=== PATIENT | male | born 1955 | race Caucasian/White ===

== ENCOUNTER 2016-11-16 16:25 | Emergency (ER) | payer SELFPAY ==
--- NOTE | 2016-11-16 17:11 | UC ---
Truncal Trauma HPI - HPI Summary HPI Summary: 60 year old male presents here with multiple complaints. Right arm pain, posterior left lower leg bruising, left back pain below scapula onset today s/p fall off ladder from height of 8 feet about 1545. Pt hit wooden palate. Pt was unable to walk, had slurred speech after dangling from ladder. Pt had urinary incontinence. [ End ] - History Of Current Complaint Chief Complaint: UCUpperExtremity Stated Complaint: LEFT LEG/BACK/ARM PAIN FALL W/C Time Seen by Provider: 11/16/16 17:04 Hx Obtained From: Patient, Family/Soda Worker Onset/Duration: Sudden Onset Onset Of Pain: Immediate Mechanism Of Injury: Blunt Trauma, Direct Blow, Fall From Height Of: - 8 feet Aggravating Factor(s): Nothing Alleviating factor(s): Nothing - Allergies/Home Medications Allergies/Adverse Reactions: Allergies Allergy/AdvReac Type Severity Reaction Status Date / Time No Known Allergies Allergy Verified 11/16/16 16:59 PMH/Surg Hx/FS Hx/Imm Hx Previously Healthy: Yes Endocrine History: Dyslipidemia - Surgical History Surgical History: None - Family History Known Family History: Positive: None - Social History Occupation: Employed Full-time Alcohol Use: None Substance Use Type: None Smoking Status (MU): Heavy Every Day Tobacco Smoker Type: Cigarettes Amount Used/How Often: 1.5 PPD Length of Time of Smoking/Using Tobacco: 41 YRS Cessation Counseling: Patient Advised to Stop - Immunization History Most Recent Tetanus Shot: greater than 5 years ago Review of Systems Eyes: Blurred Vision Genitourinary: Other - urinary incontinence Musculoskeletal: Arthralgia, Myalgia Neurological: Headache Is Patient Immunocompromised?: No All Other Systems Reviewed And Are Negative: Yes Physical Exam Triage Information Reviewed: Yes Appearance: Well-Appearing, No Pain Distress, Well-Nourished Vital Signs: Initial Vital Signs Temp 97.9 F 11/16/16 16:48 Pulse 55 11/16/16 16:48 Resp 18 11/16/16 16:48 BP 133/81 11/16/16 16:48 Vital Signs Reviewed: Yes Eye Exam: Normal ENT Exam: Normal Dental Exam: Normal Neck exam: Normal Neck: Positive: 1 Respiratory Exam: Normal Cardiovascular Exam: Normal Abdominal Exam: Normal Musculoskeletal Exam: Normal Musculoskeletal: Positive: Strength Intact, Other: - tenderness to palpation of the right upper arm near insertion of the triceps, left lower leg, left lower back diffusely as well and superficial abrasions on the back and the left lower leg. Neurological Exam: Normal Psychological Exam: Normal Skin Exam: Normal Truncal Trauma Course/Dx - Course Course Of Treatment: Concern with LOC and urinary incontinence of red flags and trauma. Needs stat labs and imaging and we can not perform that at this time in [facility] facility. Advised to go to [facility] for trauma work up but he declined and wanted to go home and I told him he could bleeding internally and that could cause his . He reluctantly will allow his daughter to drive him to the ED in [place] as they declined both [facility] and [place]. Declined ambulance as well and will drive directly there. Spoke with Dr Linares who will work up patient but informed me if any concerns for advanced trauma then he will be transferred to [facility]. - Differential Dx/Diagnosis Differential Diagnosis/HQI/PQRI: Chest Wall Contusion, Pneumothorax, Rib Fracture Provider Diagnoses: Fall with possible LOC and multiple injuries Discharge - Discharge Plan Condition: Guarded Disposition: OTHER Discharge Disposition Comment: fair to go to [place] / [facility] ED Patient Education Materials: Syncope (ED) Referrals: Charbel Pérez MD [Medical Doctor] - Additional Instructions: PLEASE GO DIRECTLY TO THE EMERGENCY ROOM IN [place] AND DO NOT STOP AT HOME. YOU NEED A THOROUGH WORK UP AT THIS TIME
[2016-11-16 17:49] VITALS: BP 114/63
== END 2016-11-16 17:50 ==
LOC: UCCORT 16:25
DX: S49.91XA Unspecified injury of right shoulder and upper arm, initial encounter (principal); S39.92XA Unspecified injury of lower back, initial encounter; S89.92XA Unspecified injury of left lower leg, initial encounter; E78.5 Hyperlipidemia, unspecified; F17.210 Nicotine dependence, cigarettes, uncomplicated; W11.XXXA Fall on and from ladder, initial encounter; Y92.9 Unspecified place or not applicable
CPT/HCPCS: 99212; G0463

== ENCOUNTER 2016-11-16 18:32 | Emergency (ER) | payer SELFPAY ==
[2016-11-16 20:28] LABS: Urine Bilirubin Negative (Negative); Urine Glucose Negative (Negative); Urine Nitrite Negative (Negative)
[2016-11-16 21:17] LABS: Hematocrit 44 % (42-52); Hemoglobin 15.1 g/dl (14.0-18.0); Mean Corpuscular HGB Conc 34 g/dl (31-36); Mean Corpuscular Hemoglobin 30 pg (27-31); Mean Corpuscular Volume 86 fL (80-94); Mean Platelet Volume 8 um3 (7.4-10.4); Red Blood Count 5.09 10^6/ul (4.0-5.4); Red Cell Distribution Width 14 % (10.5-15)
[2016-11-16 21:30] LABS: Albumin 4.1 g/dL (3.2-5.2); BUN/Creatinine Ratio 11.3 (8-20); Calcium 9.1 mg/dL (8.6-10.3); EGFR African American 127.2 (>60); EGFR Non-African American 98.9 (>60); Globulin 2.7 g/dL (2-4); Potassium 3.9 mmol/L (3.5-5.0); Total Bilirubin 0.4 mg/dL (0.2-1.0); Total Protein 6.8 g/dL (6.4-8.9)
[2016-11-16] MEDS ORDERED: Iohexol 300* (CONTRAST) 10 ML SDV IV ONE (21:50)
--- NOTE | 2016-11-16 22:04 | RAD ---
INDICATION: Head injury, fell off ladder. COMPARISON: There are no prior studies available for comparison. TECHNIQUE: Contiguous axial sections of the brain were obtained from the skull base to the vertex without contrast. FINDINGS: The ventricles, cisterns and sulci are within normal limits. No significant focal abnormality or mass effect is seen. There is no evidence for hemorrhage. No significant focal osseous abnormality is seen. The visualized portion of the paranasal sinuses and mastoid air cells appear clear. IMPRESSION: NO EVIDENCE FOR ACUTE INTRACRANIAL ABNORMALITY.
--- NOTE | 2016-11-16 22:15 | RAD ---
INDICATION: Trauma. COMPARISON: There are no prior studies available for comparison. TECHNIQUE: Contiguous axial sections were obtained from the skull base through the T1 vertebra. Images were reconstructed in the sagittal and coronal planes. FINDINGS: The vertebra are in normal alignment. No prevertebral soft tissue swelling or fracture is seen. There are several small lucent lesions present within the vertebra. These involve the articular process of the C2 vertebra on the right side, the C3 vertebral body and the transverse process of the C6 transverse process on the right side. These measure up to 0.8 cm in size. At the C4-C5 level there is mild posterior uncinate process spurring. There is mild spinal canal narrowing and moderate neural foraminal narrowing on the left side. At the C5-C6 level there is mild posterior uncinate process spurring. There is mild spinal canal narrowing and mild bilateral neural foraminal narrowing. At the C6-C7 level there is mild posterior uncinate process spurring. No spinal canal narrowing is present. There is mild neural foraminal narrowing on the left side. IMPRESSION: 1. NO EVIDENCE FOR FRACTURE OR SUBLUXATION. 2. MULTIPLE SMALL LUCENT LESIONS WITHIN SEVERAL VERTEBRA, POSSIBLY INCIDENTAL ALTHOUGH THE POSSIBILITY OF A NEOPLASTIC PROCESS SUCH METASTATIC DISEASE OR MULTIPLE MYELOMA CANNOT BE EXCLUDED. RECOMMEND AN OUTPATIENT MRI OF THE CERVICAL SPINE FOR FURTHER EVALUATION. 3. [id number] CERVICAL SPONDYLOSIS.
[2016-11-16 23:34] VITALS: BP 133/69
--- NOTE | 2016-11-17 07:40 | RAD ---
INDICATION: Pain at the left leg back and head after a fall from an 8 foot ladder. COMPARISON: CT urogram dated December 22, 2014. TECHNIQUE: Multidetector CT images of the chest, abdomen and pelvis were obtained from the lung apices to the ischial tuberosities following the injection of 85 mL Omnipaque 300. The patient received oral contrast as well.. CHEST: Lungs exhibit diffuse mild centrilobular emphysematous changes. Otherwise the lungs are clear. There are no large pleural effusions. There is no mediastinal or hilar lymphadenopathy. The heart and major vascular structures are grossly normal in appearance. ABDOMEN \T\ PELVIS: Fluid density cyst in the left lobe of the liver are unchanged from the prior CT examination. The liver is otherwise homogenous in attenuation. The spleen, pancreas and adrenal glands are grossly normal in appearance. The gallbladder is normal. The kidneys are normal in appearance without focal mass, calcification or signs of hydronephrosis. On the delayed phase images contrast is symmetrically and promptly excreted. . The small and large bowel are not distended. The appendix . There is no gross retroperitoneal or mesenteric lymphadenopathy. The prostate is slightly enlarged measuring 4.3 x 5.9 cm in the axial plane. The mildly calcified abdominal aorta and iliac arteries are normal in course and diameter. Coarse calcification extends into the bilateral common iliac arteries. Degenerative changes of the thoracic and lumbar spine includes loss of intervertebral disc height at multiple levels. There is no displaced fracture involving the axial skeleton. IMPRESSION: 1. No displaced fracture or other traumatic injury involving the chest abdomen and pelvis. 2. Coarse calcification in the lower abdominal aorta extends into the iliac arteries. Please correlate to signs and symptoms of arterial insufficiency. 3. Additional chronic and degenerative changes described in the body the report unrelated to the patient's acute traumatic presentation.
--- NOTE | 2016-11-26 14:46 | ED ---
Natalie Hernandez Rebecca, scribed for Eneida Brand MD on 11/16/16 at 2049 . Adult Trauma - HPI Summary HPI Summary: Pt is a 60 y/o M referred from [facility] who presents to ED c/o back pain s/p fall. At approximately 1530 today the pt was on an 8 foot ladder when he stepped backwards, causing him to fall. Pt is unsure of any head trauma and the fall was unwitnessed. Pain is currently mild, ranked 3/10. Sx aggravated and alleviated by nothing. Additionally notes mild LLE pain characterized as sore, dizziness, slurred speech and diaphoresis after the fall. Denies abdominal, chest, hip, shoulder and neck pain as well as SOB. NKDA. - History of Current Complaint Chief Complaint: EDGeneral Stated Complaint: FALL/SENT BY [facility] Time Seen by Provider: 11/16/16 20:32 Hx Obtained From: Patient Mechanism of Injury: Fall Onset/Duration: Started Hours Ago, Still Present Onset of Pain: Prior to Arrival Current Severity: Mild Pain Intensity: 3 Pain Scale Used: 0-10 Numeric Location: Back, Extremities - LLE - soreness Aggravating Factor(s): Nothing Alleviating Factor(s): Nothing Associated Signs & Symptoms: Negative: SOB, Chest Pain, Abdominal Pain - Allergy/Home Medications Allergies/Adverse Reactions: Allergies Allergy/AdvReac Type Severity Reaction Status Date / Time No Known Allergies Allergy Verified 11/16/16 16:59 PMH/Surg Hx/FS Hx/Imm Hx Endocrine/Hematology History: Denies: Hx Diabetes Cardiovascular History: Reports: Hx Hypercholesterolemia, Hx Hypertension Infectious Disease History: Yes Infectious Disease History: Denies: Traveled Outside the [place] in Last 30 Days - Family History Known Family History: Negative: Hypertension - Social History Alcohol Use: None Substance Use Type: Reports: None Smoking Status (MU): Heavy Every Day Tobacco Smoker Type: Cigarettes Amount Used/How Often: 1.5 PPD Length of Time of Smoking/Using Tobacco: 41 YRS Review of Systems Positive: Skin Diaphoresis - s/p fall Negative: Chest Pain Negative: Shortness Of Breath Negative: Abdominal Pain Positive: Arthralgia - Back pain, mild LLE pain; NEGATIVE: hip, shoulder nad neck pain Neurological: Other - Dizziness - s/p fall Positive: Slurred Speech - s/p fall All Other Systems Reviewed And Are Negative: Yes Physical Exam - Summary Physical Exam Summary: General: Well appearing, no pain distress Skin: Warm, Skin Color Reflects Adequate Perfusion, Dry, Abrasions to the posterior surface of the LLE with a contusion. He has one abrasion that is 4 cm long over the anterior surface of the LLE. He has a contusion with an abrasion over the periscapular on the left side. He has multiple small contusions over his thorax on the L side and another contusion/abrasion periscapular on the R. Eyes: EOMI, GOPAL ENT: Pharynx normal, TMs normal Neck: Supple, nontender Respiratory: CTA, breath sounds present, no rhonchi, no wheezes, no rales Cardiovascular: RRR, no murmur, no rub, no gallop Abdomen: Soft, nontender, Non-distended, no guarding, no rebound Bowel: Present Musculoskeletal: ATIF, No edema Neuro: Sensory/motor intact, A&Ox3, CN intact 2-12 Psych: Affect/mood appropriate Triage Information Reviewed: Yes Vital Signs On Initial Exam: Initial Vitals Temp Pulse Resp BP Pulse Ox 98.5 F 60 20 122/68 100 11/16/16 18:46 11/16/16 18:46 11/16/16 18:46 11/16/16 18:46 11/16/16 18:46 Vital Signs Reviewed: Yes Diagnostics - Vital Signs Vital Signs Temp Pulse Resp BP Pulse Ox 11/16/16 19:47 97.9 F 60 14 138/61 99 11/16/16 18:46 98.5 F 60 20 122/68 100 - Laboratory Lab Results: Lab Results 11/16/16 Range/Units 19:53 Urine Color Yellow Urine Appearance Clear Urine pH 7.0 (5-9) Ur Specific [place] 1.010 (1.010-1.030) Urine Protein Negative (Negative) Urine Ketones Negative (Negative) Urine Blood Negative (Negative) Urine Nitrate Negative (Negative) Urine Bilirubin Negative (Negative) Urine Urobilinogen Negative (Negative) Ur Leukocyte Esterase Negative (Negative) Urine Glucose Negative (Negative) Result Diagrams: 11/16/16 21:00 11/16/16 21:00 Lab Statement: Any lab studies that have been ordered have been reviewed, and results considered in the medical decision making process. - CT C-Spine CT CT Interpretation: Positive (See Comments) - 1. NO EVIDENCE FOR FRACTURE OR SUBLUXATION. 2. MULTIPLE SMALL LUCENT LESIONS WITHIN SEVERAL VERTEBRA, POSSIBLY INCIDENTAL ALTHOUGH THE POSSIBILITY OF A NEOPLASTIC PROCESS SUCH METASTATIC DISEASE OR MULTIPLE MYELOMA CANNOT BE EXCLUDED. RECOMMEND AN OUTPATIENT MRI OF THE CERVICAL SPINE FOR FURTHER EVALUATION. 3. [id number] CERVICAL SPONDYLOSIS. ED physician reviewed radiology report and agrees. CT Interpretation Completed By: Radiologist Brain CT CT Interpretation: No Acute Changes - NO EVIDENCE FOR ACUTE INTRACRANIAL ABNORMALITY. ED physician reviewed radiology report and agrees. CT Interpretation Completed By: Radiologist Chest/Abd/Pel CT CT Interpretation: No Acute Changes - Chest - No pneumothorax, airspace consolidation or pleural effusions. Scarring at the lung apices with multiple small subpleural bulla at the right apex. The tracheobronchial tree is patent. Atherosclerotic calcifications in the aortic arch. The heart, mediastinum and great vessels are otherwise unremarkable. There is a small low attenuation right thyroid nodule measuring 7 mm. The bony thorax is intact. Abdomen and Pelvis - The live ris mildly enlarged measuring 18 cm in craniocaudal dimension. There is a 1 cm cyst in the lateral segment of the left hepatic love and 2 subcentimeter hypodensities which are nonspecific possibly small cysts or hemangiomas. Small bilateral renal cysts. The upper abdominal visceral organs are otherwise unremarkable. No gross abnormality of the unenhanced small bowel and colon. There is moderate fecal retention in the colon. A normal appendix is visualized. The prostate is enlarged, measuring 5.6 cm in greatest transverse dimension. No intra-abdominal free air, free fluid or loculated collections. No acute osseous abnormalities. ED physician reviewed radiology report and agrees. CT Interpretation Completed By: Radiologist Re-Evaluation - Re-Evaluation First Eval Re-Evaluation Time: 23:00 Comment: Pt is doing fine, frustrated because he would like to go home. Reviewed the CT results that have returned. Adult Trauma Course/Dx - Course Course Of Treatment: pt and two family members who were with the pt were made aware of incidental findings on CT and verbalized understanding that these findings needed to be followup up on - Diagnoses Provider Diagnoses: Multiple contusions, Abrasion Discharge - Discharge Plan Condition: Stable Disposition: HOME Prescriptions: Cyclobenzaprine TAB* [Flexeril 10 MG TAB*] 10 mg PO TID PRN #30 tab PRN Reason: Spasms HYDROcodone/ACETAMIN 5-325 MG* [[place] 5-325 TAB*] 1 tab PO Q8H PRN #9 tab MDD 3 PRN Reason: Pain Patient Education Materials: Contusion in Adults (ED), Abrasion (ED) Referrals: Zeus Reddy DO [Primary Care Provider] - 3 Days The documentation as recorded by the Natalie alvarado Rebecca accurately reflects the service I personally performed and the decisions made by me, Eneida Brand MD.
== END 2016-11-16 23:33 | disposition home or self-care (01) ==
LOC: ED 18:32
DX: T14.8 Other injury of unspecified body region (principal); M54.9 Dorsalgia, unspecified; W11.XXXA Fall on and from ladder, initial encounter; Y93.9 Activity, unspecified; Y92.9 Unspecified place or not applicable; F17.210 Nicotine dependence, cigarettes, uncomplicated
CPT/HCPCS: 36415; 70450; 71260; 72125; 74177; 80053; 81003; 83605; 85025; 96360; 99284; Q9967

== ENCOUNTER 2018-03-27 05:01 | Emergency (ER) | payer BC, OTHER ==
--- NOTE | 2018-03-27 05:41 | ED ---
GI/ HPI - HPI Summary HPI Summary: 62-year-old male presents with abdominal pain for the past day. He states he was lifting a lot of things yesterday and feels like he is muscle cramps in his abdomen. He denies any constipation or diarrhea. No nausea or vomiting. No urinary symptoms. No fevers. He states he had normal bowel movement a couple hours ago. no chest pain or SOB. no recent illness. has never had this before. no previous belly surgeries. - History of Current Complaint Chief Complaint: EDAbdPain Time Seen by Provider: 03/27/18 05:35 Stated Complaint: ABD PAIN Pain Intensity: 5 - Allergy/Home Medications Allergies/Adverse Reactions: Allergies Allergy/AdvReac Type Severity Reaction Status Date / Time No Known Allergies Allergy Verified 03/27/18 05:06 PMH/Surg Hx/FS Hx/Imm Hx Endocrine/Hematology History: Denies: Hx Anticoagulant Therapy Cardiovascular History: Reports: Hx Hypertension Denies: Hx Pacemaker/ICD Sensory History: Denies: Hx Hearing Aid Psychiatric History: Denies: Hx Panic Disorder Infectious Disease History: No Infectious Disease History: Denies: Traveled Outside the [place] in Last 30 Days - Family History Known Family History: Positive: None - Social History Alcohol Use: None Substance Use Type: Reports: None Smoking Status (MU): Heavy Every Day Tobacco Smoker Type: Cigarettes Amount Used/How Often: 1.5 PPD Length of Time of Smoking/Using Tobacco: 41 YRS Review of Systems Negative: Fever Negative: Chest Pain Negative: Shortness Of Breath Positive: Abdominal Pain. Negative: Vomiting, Diarrhea, Nausea All Other Systems Reviewed And Are Negative: Yes Physical Exam Triage Information Reviewed: Yes Vital Signs On Initial Exam: Initial Vitals Temp Pulse Resp BP Pulse Ox 99.0 F 64 16 131/73 99 03/27/18 05:03 03/27/18 05:03 03/27/18 05:03 03/27/18 05:03 03/27/18 05:03 Vital Signs Reviewed: Yes Appearance: Positive: Well-Appearing Skin: Positive: Warm, Dry Head/Face: Positive: Normal Head/Face Inspection Eyes: Positive: Normal, Conjunctiva Clear ENT: Positive: Normal ENT inspection, Pharynx normal, TMs normal Respiratory/Lung Sounds: Positive: Clear to Auscultation, Breath Sounds Present Cardiovascular: Positive: Normal, RRR Abdomen Description: Positive: Soft, Other: - tenderness on left side of abd Bowel Sounds: Positive: Present Musculoskeletal: Positive: Normal Neurological: Positive: Normal Psychiatric: Positive: Normal Diagnostics - Vital Signs Vital Signs Temp Pulse Resp BP Pulse Ox 03/27/18 05:03 99.0 F 64 16 131/73 99 - Laboratory Result Diagrams: 03/27/18 05:49 03/27/18 05:49 Lab Statement: Any lab studies that have been ordered have been reviewed, and results considered in the medical decision making process. - CT abd CT Interpretation Completed By: Radiologist Summary of CT Findings: IMPRESSION: 1. THE PROSTATE GLAND IS ENLARGED. THERE IS LOSS OF THE NORMAL ACUTE ANGLE BETWEEN THE. PROSTATE GLAND AND RIGHT SEMINAL VESICLE. THIS MAY INDICATE THE PRESENCE OF A PROSTATE. NEOPLASM. RECOMMEND CORRELATION WITH SERUM MARKERS FOR PROSTATE NEOPLASM AND CONSIDERATION. OF DEDICATED IMAGING OF THE PROSTATE GLAND IN THE NONACUTE SETTING. 2. HEPATOMEGALY WITH FATTY INFILTRATION OF LIVER. 3. SMALL HYPERVASCULAR LESION OF THE RIGHT LOBE OF LIVER. IN THE ABSENCE OF KNOWN. MALIGNANCY OR RISK FACTORS FOR HEPATOCELLULAR CARCINOMA, THIS LIKELY REPRESENTS A SMALL. HEMANGIOMA. 4. ATHEROSCLEROSIS. 5. LARGE AMOUNT OF STOOL THROUGHOUT THE COLON. - EKG No standard instances Cardiac Rate: NL EKG Rhythm: Sinus Rhythm EKG Comparison: No Significant Change Summary of EKG Findings: sinus rhythm Re-Evaluation - Re-Evaluation First Eval Re-Evaluation Time: 07:02 Change: Unchanged Comment: pain is same GIGU Course/Dx - Course Course Of Treatment: 62-year-old male presents with abdominal pain for the past day. He states he was lifting a lot of things yesterday and feels like he is muscle cramps in his abdomen. He denies any constipation or diarrhea. No nausea or vomiting. No urinary symptoms. No fevers. He states he had normal bowel movement a couple hours ago. no chest pain or SOB. no recent illness. has never had this before. no previous belly surgeries. on exam tenderness left side of abd. wbc 13.4. crp normal. CT abd shows large amount of stool and enlarged prostate. will give referral to urology about such. discussed importance of such. offered to give medication for constipation but patient declined. told to follow up with primary. patient understand and agrees with plan. - Diagnoses Differential Diagnoses - Male: Gastritis, Gastroenteritis (Viral), Urinary Tract Infection Provider Diagnoses: Abdominal pain Discharge - Sign-Out/Discharge Documenting (check all that apply): Patient Departure Patient Received Moderate/Deep Sedation with Procedure: No - Discharge Plan Condition: Good Disposition: HOME Patient Education Materials: Abdominal Pain (ED) Referrals: Zeus Reddy DO [Primary Care Provider] - Dmo Medina MD [Medical Doctor] - Additional Instructions: follow up with urology Take tyenlol as needed for pain take try miralax as needed for constipation Return to ED if develop any new or worsening symptoms - Billing Disposition and Condition Condition: GOOD Disposition: Home
[2018-03-27 05:56] LABS: ABS Basophils 0.1 10^3/ul (0-0.2); ABS Eosinophils 0.3 10^3/ul (0-0.6); ABS Lymphocytes 2.1 10^3/ul (1.0-4.8); ABS Monocytes 0.8 10^3/ul (0-0.8); ABS Neutrophils 8.1 10^3/ul (1.5-7.7); ABS Nucleated RBC 0 10^3/ul; Eosinophil % 2.7 %; Hematocrit 42 % (42-52); Hemoglobin 14.2 g/dl (14.0-18.0); Lymphocyte % 18.4 %; Mean Corpuscular HGB Conc 34 g/dl (31-36); Mean Corpuscular Hemoglobin 30 pg (27-31); Mean Corpuscular Volume 88 fL (80-94); Mean Platelet Volume 7.7 fL (7.4-10.4); Nucleated Red Blood Cells % 0.1; Platelet Count 222 10^3/ul (150-450); Red Cell Distribution Width 15 % (10.5-15); White Blood Count 11.3 10^3/ul (3.5-10.8)
[2018-03-27 06:14] LABS: Albumin 3.8 g/dL (3.2-5.2); Albumin/Globulin Ratio 1.5 (1-3); BUN/Creatinine Ratio 17.9 (8-20); C Reactive Protein 2.81 mg/L (<8.01); Calcium 9.1 mg/dL (8.6-10.3); EGFR African American 112.4 (>60); EGFR Non-African American 92.9 (>60); Globulin 2.5 g/dL (2-4); Potassium 4.4 mmol/L (3.5-5.0); Total Bilirubin 0.4 mg/dL (0.2-1.0); Total Protein 6.3 g/dL (6.4-8.9)
[2018-03-27 06:31] LABS: Urine Appearance Clear; Urine Bilirubin Negative (Negative); Urine Blood Negative (Negative); Urine Color Yellow; Urine Glucose Negative (Negative); Urine Ketones Negative (Negative); Urine Nitrite Negative (Negative); Urine Protein Negative (Negative); Urine Specific Gravity 1.008 (1.010-1.030); Urine Urobilinogen Negative (Negative)
[2018-03-27] MEDS ORDERED: Iohexol 300* (CONTRAST) 10 ML SDV IV ONE (07:23)
[2018-03-27 08:25] VITALS: BP 109/68
== END 2018-03-27 08:24 | disposition home or self-care (01) ==
LOC: ED 05:01
DX: R10.33 Periumbilical pain (principal); R00.1 Bradycardia, unspecified; R16.0 Hepatomegaly, not elsewhere classified; I70.0 Atherosclerosis of aorta; N40.0 Benign prostatic hyperplasia without lower urinary tract symptoms; F17.210 Nicotine dependence, cigarettes, uncomplicated
CPT/HCPCS: 36415; 74177; 80053; 81003; 83690; 84484; 85025; 86140; 93005; 99282; Q9967